=== PATIENT | female | born 1975 | race Two or more races ===

== ENCOUNTER 2022-06-05 07:19 | Day surgery (SDC) | payer OTHER ==
[~2022-06-05] VITALS: Ht 167.6 cm; Wt 79.4 kg
[~2022-06-05 07:19] MED LIST: D3 + K2 DOTS 11 EACH PO; LEVO-T100 MCG PO
[2022-06-05] MEDS ORDERED: IBU600 MG PO (09:02)
== END 2022-06-05 15:30 | disposition home or self-care (01) ==
LOC: CIR.AMB 07:19
PROVIDERS: ATTEND Obstetrics & Gynecology Gynecology
DX: N84.0 Polyp of corpus uteri (principal); E03.9 Hypothyroidism, unspecified; Z20.822 Contact with and (suspected) exposure to COVID-19; Z88.0 Allergy status to penicillin